=== PATIENT | male | born 1995 | race Caucasian/White ===

== ENCOUNTER 2018-03-01 14:16 | Emergency (ER) | payer OTHER ==
[~2018-03-01] VITALS: Ht 177.8 cm; Wt 68.0 kg
[2018-03-01] MEDS ORDERED: PREDNISONE 20 M20 MG PO (15:16)
[2018-03-01 16:03] VITALS: BP 113/65
== END 2018-03-01 16:04 | disposition home or self-care (01) ==
LOC: ER 14:16
DX: J38.1 Polyp of vocal cord and larynx (principal); J02.0 Streptococcal pharyngitis